=== PATIENT | female | born 2000 | race Caucasian/White ===

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

== ENCOUNTER 2022-01-04 06:00 | Inpatient (IN) | payer OTHER ==
[2022-01-04] MEDS ORDERED: CARBOPROST TROMETHAMINE 250 MCG/ML 1 ML AMP IM PRN (06:10)
[2022-01-04] MEDS ORDERED: OXYTOCIN 10 UNIT/ML 1 ML VIAL IM PRN (06:10)
[2022-01-04] MEDS ORDERED: TERBUTALINE 1 MG/ML VIAL SQ PRN (06:10)
[2022-01-04] MEDS ORDERED: LIDOCAINE 0.5% (PF) 5 MG/ML (50 ML SDV) SQ PRN (06:10)
[2022-01-04] MEDS ORDERED: METHYLERGONOVINE 0.2 MG/ML 1 ML AMP IM PRN (06:10)
[2022-01-04] MEDS ORDERED: AMPICILLIN 2,000 MG in SODIUM CHLORIDE 0.9% 100 ML IVPB STA (06:10)
[2022-01-04] MEDS: LACTATED RINGERS 1,000 ML IV SCH ×3 (06:13→15:11)
[2022-01-04] MEDS ORDERED: OXYTOCIN 30 UNITS/500 ML NS 30 UNIT in SALINE 1 500ML.BAG IV SCH (06:15)
[2022-01-04 06:37] LABS: Basophils # (A) 0.1 k/uL (0-0.2); Basophils % (A) 1 %; Eosinophils # (A) 0.3 k/uL (0-0.7); Eosinophils % (A) 2 %; HCT 36.3 % (34.0-46.0); Lymphocytes # (A) 2.5 k/uL (1.0-4.8); Lymphocytes % (A) 20 %; MCH 27.2 pg (25.0-35.0); MCHC 33.2 g/dL (31.0-37.0); Mean Platelet Volume 8.6; Monocytes # (A) 0.9 k/uL (0-1.0); Monocytes % (A) 7 %; Neutrophils # (A) 8.3 k/uL (1.3-7.7); Neutrophils % (A) 68 %; Platelet Count 269 k/uL (150-450); RBC 4.43 m/uL (3.80-5.40); RDW 12.9 % (11.5-15.5); WBC 12.2 k/uL (4.0-11.0)
[2022-01-04 08:00] LABS: Amorphous Sediment,Urine Few /hpf; Appearance,Urine Cloudy (Clear); Bilirubin,Urine Negative (Negative); Blood,Urine Negative (Negative); Color,Urine Light Yellow; Glucose,Urine (UA) Negative (Negative); Ketones,Urine Negative (Negative); Leukocyte Esterase,Urine Negative (Negative); Mucus,Urine Rare /hpf; Nitrite,Urine Negative (Negative); Protein,Urine Negative (Negative); Specific Gravity,Urine 1.014 (1.001-1.035); Squamous Epithelial Cell,Urine 1 /hpf (0-4); Urobilinogen,Urine <2.0 mg/dL (<2.0); WBC,Urine <1 /hpf (0-5)
[2022-01-04 10:36] LABS: Amphetamine Screen,Urine Not Detected (NotDetected); Barbiturate Screen,Urine Not Detected (NotDetected); Benzodiazepines Screen,Urine Not Detected (NotDetected); Cocaine Screen,Urine Not Detected (NotDetected); Methadone Screen, Urine Not Detected (NotDetected); Opiate Screen,Urine Not Detected (NotDetected); Oxycodone Screen, Urine Not Detected (NotDetected); Phencyclidine Screen,Urine Not Detected (NotDetected); Tricyclic Antidepressant,Urine Not Detected (NotDetected); Urn Cannabinoid Scrn Not Detected (NotDetected)
[2022-01-04] MEDS: AMPICILLIN 1,000 MG in SODIUM CHLORIDE 0.9% 50 ML IVPB SCH ×4 (10:53→23:22)
[2022-01-04] MEDS ORDERED: fentaNYL (PF) 50 MCG/ML 5 ML AMP ONE (14:11)
[2022-01-04] MEDS ORDERED: ROPIVACAINE 5 MG/ML 20 ML AMPULE ONE (14:11)
[2022-01-04] MEDS ORDERED: SODIUM CHLORIDE 0.9% 100 ML BAG ONE (14:11)
--- NOTE | 2022-01-04 22:08 | P.HPOB ---
History of Present Illness H&P Date: 01/04/22 Chief Complaint: Induction of labor 21 year old presents at 39 weeks 5 days for induction of labor. Her cervix is 1-2/70%/-2. She is melinda irregularly. heart tones 135 with moderate variability and reactive. Review of Systems All systems: negative Constitutional: Denies chills, Denies fever Eyes: denies blurred vision, denies pain Ears, nose, mouth and throat: Denies headache, Denies sore throat Cardiovascular: Denies chest pain, Denies shortness of breath Respiratory: Denies cough Gastrointestinal: Denies abdominal pain, Denies diarrhea, Denies nausea, Denies vomiting Genitourinary: Denies dysuria, Denies hematuria Musculoskeletal: Denies myalgias Integumentary: Denies pruritus, Denies rash Neurological: Denies numbness, Denies weakness Psychiatric: Denies anxiety, Denies depression Endocrine: Denies fatigue, Denies weight change Past Medical History Past Medical History: Asthma History of Any Multi-Drug Resistant Organisms: None Reported Past Surgical History: No Surgical Hx Reported Additional Past Surgical History / Comment(s): [place] teeth, D&C 2020 Past Anesthesia/Blood Transfusion Reactions: No Reported Reaction Past Psychological History: Anxiety, Bipolar, Depression Smoking Status: Vaper Past Alcohol Use History: None Reported Past Drug Use History: Marijuana - Past Family History Father Family Medical History: Thyroid Disorder Mother Family Medical History: Thyroid Disorder Medications and Allergies Home Medications Medication Instructions Recorded Confirmed Type Vit No.179/Iron/Folic 1 tablet PO DAILY 01/04/22 01/04/22 History [ Tablet] Allergies Allergy/AdvReac Type Severity Reaction Status Date / Time No Known Allergies Allergy Verified 01/04/22 06:09 Exam Osteopathic Statement: *. No significant issues noted on an osteopathic structural exam other than those noted in the History and Physical/Consult. Vital Signs Temp Pulse Resp BP Pulse Ox 01/04/22 06:34 97.4 F L 105 H 18 138/85 96 Intake and Output 01/04/22 01/04/22 01/04/22 06:59 14:59 22:59 Other: # Voids 5 Weight 122.016 kg Heart: Regular rate and rhythm Lungs: Clear to auscultation bilaterally Abdomen: Soft, nontender Extremities: Negative Homans sign Results Result Diagrams: 01/04/22 06:15 Abnormal Lab Results - Last 24 Hours (Table) 01/04/22 01/04/22 Range/Units 06:05 06:15 WBC 12.2 H (4.0-11.0) k/uL Neutrophils # 8.3 H (1.3-7.7) k/uL Urine Appearance Cloudy H (Clear) Amorphous Sediment Few H (None) /hpf Urine Mucus Rare H (None) /hpf Assessment and Plan (1) Encounter for induction of labor Current Visit: Yes Status: Acute Code(s): Z34.90 - ENCNTR FOR SUPRVSN OF NORMAL , UNSP, UNSP TRIMESTER SNOMED Code(s): 563951028 Plan: 1. induction of labor with amniotomy and pitocin 2. anticipate normal vaginal delivery
[2022-01-05] MEDS ORDERED: ACETAMINOPHEN TAB 325 MG TAB PO PRN (00:13)
[2022-01-05] MEDS ORDERED: HYDROCORTISONE 2.5% RECTAL CREAM 30 GM TUBE RECTAL PRN (00:13)
[2022-01-05] MEDS ORDERED: LANOLIN CREAM 5 GM TUBE TOPICAL PRN (00:13)
[2022-01-05] MEDS ORDERED: ZOLPIDEM 5 MG TAB PO PRN (00:13)
[2022-01-05] MEDS ORDERED: SIMETHICONE 80 MG CHEWABLE PO PRN (00:13)
[2022-01-05] MEDS ORDERED: diphenhydrAMINE 25 MG CAP PO PRN (00:13)
[2022-01-05] MEDS ORDERED: diphenhydrAMINE 50 MG CAP PO PRN (00:13)
[2022-01-05] MEDS ORDERED: BENZOCAINE/MENTHOL SPRAY 1 GM/SPRAY AEROSOL TOPICAL PRN (00:13)
[2022-01-05] MEDS ORDERED: diphenhydrAMINE 50 MG/ML 1 ML VIAL IVP PRN ×2 (00:13)
[2022-01-05] MEDS ORDERED: OXYTOCIN 30 UNITS/500 ML NS 30 UNIT in SALINE 1 500ML.BAG IV SCH (00:15)
[2022-01-05] MEDS: LACTATED RINGERS 1,000 ML IV SCH (00:27)
[2022-01-05] MEDS: IBUPROFEN 600 MG TAB PO PRN ×2 (01:15→08:11)
[2022-01-05] MEDS: SENNOSIDES-DOCUSATE SODIUM 1 EACH TAB PO SCH (08:10)
--- NOTE | 2022-01-05 08:10 | P.PROBDLV ---
Vaginal Delivery Note - . Vaginal Delivery Note: 21 year old presents at 39 weeks 5 days for induction of labor. Her cervix is 1-2/70%/-2. She is melinda irregularly. heart tones 135 with moderate variability and reactive. Pitocin was started and amniotomy performed at 7:24 AM, clear fluid noted. She progressed slowly throughout the day and started with some nitrous for pain control. By the afternoon she was quite uncomfortable and required an epidural and she was 3 cm at that time. Her cervix was completely dilated at 2346. She pushed, and delivered a viable female over intact perineum under epidural anesthesia at 2358. Head delivered OA, anterior shoulder delivered gentle downward guidance followed by posterior shoulder and rest of body. Nose and mouth bulb suctioned, cord clamped and cut, placed mother's abdomen. Apgars 9, 9, weight 7 lbs. 7 oz. Placenta delivered spontaneously, intact with three-vessel cord at midnight. Vagina, cervix, perineum inspected. Bilateral labial first-degree tears were repaired with 3-0 Vicryl. Estimated blood loss 200 mL. Mother and baby in stable condition.
--- NOTE | 2022-01-05 08:12 | P.PNOBGVD ---
Subjective - Subjective Principal diagnosis: Status post normal vaginal delivery day #1 Interval history: Patient seen and examined. Denies nausea, vomiting, chest pain, shortness of breath or any calf pain. Patient reports: Reports appetite normal, Reports voiding normally, Reports pain well controlled, Reports ambulating normally [place]: doing well Objective - Latest Vital Signs Latest vital signs: Vital Signs Temp Pulse Resp BP Pulse Ox 01/05/22 04:00 98.4 F 100 18 112/67 96 01/05/22 02:12 97.6 F 120 H 16 128/59 01/05/22 01:42 99.4 F 122 H 16 118/56 01/05/22 01:12 99.7 F H 122 H 16 132/57 01/05/22 00:57 98.8 F 122 H 16 128/56 01/05/22 00:42 125 H 16 120/59 01/05/22 00:27 96.9 F L 133 H 16 118/56 01/05/22 00:12 130 H 18 132/74 Intake and Output 01/04/22 01/05/22 01/05/22 22:59 06:59 14:59 Intake Total 34.5 Output Total 375 305 Balance -375 -270.5 Intake: Intake, IV Titration 34.5 Amount Oxytocin 30 Units/500 ml 34.5 Ns 30 unit In Saline 1 500ml.bag @ Per Protocol IV .Q0M [facility] Rx#:[id number] Output: Urine 375 Estimated Blood Loss 200 Output, Quantitative 105 Blood Loss Other: # Voids 1 - Exam Lungs: bilateral: normal Chest: Normal S1, Normal S2 Extremities: Present: normal Abdomen: Present: normal appearance, soft Uterus: Present: normal, firm Assessment and Plan (1) Encounter for induction of labor Current Visit: Yes Status: Resolved Code(s): Z34.90 - ENCNTR FOR SUPRVSN OF NORMAL , UNSP, UNSP TRIMESTER SNOMED Code(s): 983033804 (2) Status post normal vaginal delivery Current Visit: Yes Status: Acute Code(s): [id number] - SNOMED Code(s): 731278561 Plan: 1. Continue care
[2022-01-06] MEDS: IBUPROFEN 600 MG TAB PO PRN (07:34)
[2022-01-06 07:44] VITALS: BP 115/72; PULSE 75; RESP 16; TEMP 98.2
[2022-01-06] MEDS: SENNOSIDES-DOCUSATE SODIUM 1 EACH TAB PO SCH ×2 (07:44→09:14)
--- NOTE | 2022-01-06 08:30 | P.DS ---
Providers Date of admission: 01/04/22 06:00 Expected date of discharge: 01/06/22 Attending physician: Christina Holloway Primary care physician: Stated None - Discharge Diagnosis(es) (1) Encounter for induction of labor Current Visit: Yes Status: Resolved (2) Status post normal vaginal delivery Current Visit: Yes Status: Acute Hospital Course: Pt presented for induction of labor. She underwent a normal vaginal delivery. course was uncomplicated. She denies nausea, I'm, chest pain, shortness of breath or calf pain. Patient will be discharged home day #1 in stable condition to follow-up with me in 6 weeks. Plan - Discharge Summary New Discharge Prescriptions: New Ibuprofen [Motrin] 600 mg PO Q6HR PRN #30 tab PRN Reason: Mild Pain (Scale 1 To 3) No Action Vit No.179/Iron/Folic [ Tablet] 1 tablet PO DAILY Discharge Medication List Vit No.179/Iron/Folic [ Tablet] 1 tablet PO DAILY 01/04/22 [History] Ibuprofen [Motrin] 600 mg PO Q6HR PRN #30 tab 01/06/22 [Rx] Follow up Appointment(s)/Referral(s): Christina Holloway DO [Doctor of Osteopathic Medicine] - 02/17/22 11:15 am Discharge Disposition: HOME SELF-CARE
== END 2022-01-06 11:15 | disposition home or self-care (01) | DRG 807 ==
LOC: 4FBP 06:00
PROVIDERS: ADMIT Obstetrics & Gynecology; ATTEND Obstetrics & Gynecology
PROC: 10E0XZZ Delivery of Products of Conception, External Approach (ICD-10-PCS; principal; 2022-01-05)
PROC: 4A0HXCZ Measurement of Products of Conception, Cardiac Rate, External Approach (ICD-10-PCS; 2022-01-05)
PROC: 10907ZC Drainage of Amniotic Fluid, Therapeutic from Products of Conception, Via Natural or Artificial Opening (ICD-10-PCS; 2022-01-05)
PROC: 3E033VJ Introduction of Other Hormone into Peripheral Vein, Percutaneous Approach (ICD-10-PCS; 2022-01-05)
PROC: 0HQ9XZZ Repair Perineum Skin, External Approach (ICD-10-PCS; 2022-01-05)
DX: O99.334 Smoking (tobacco) complicating childbirth (principal); O70.0 First degree perineal laceration during delivery; Z37.0 Single live birth; F31.9 Bipolar disorder, unspecified; F41.9 Anxiety disorder, unspecified; J45.909 Unspecified asthma, uncomplicated; O99.344 Other mental disorders complicating childbirth; F17.290 Nicotine dependence, other tobacco product, uncomplicated; Z3A.39 39 weeks gestation of pregnancy; O99.52 Diseases of the respiratory system complicating childbirth
CPT/HCPCS: 80306; 81001; 85025; 86850; 86900; 86901

== ENCOUNTER 2022-06-30 09:03 | Emergency (ER) | payer OTHER ==
[2022-06-30 09:08] VITALS: TEMP 97.8
[2022-06-30 09:51] VITALS: BP 120/78; PULSE 80; RESP 16
--- NOTE | 2022-06-30 10:24 | ED ---
Fall HPI - General Chief Complaint: Fall Stated Complaint: Fall,17wks Time Seen by Provider: 06/30/22 09:10 Source: patient, RN notes reviewed Mode of arrival: ambulatory Limitations: no limitations - History of Present Illness Initial Comments: This is a 22-year-old female presents emergency Department with chief complaint of fall. Patient states she is coming on someone status and which was slippery. Patient states that she slipped falling onto her back. Patient states she is 17 weeks states that she is concerned about the baby she did not check her abdomen denies any vaginal bleeding or vaginal discharge. Patient states she hasn't mild back pain denies any lower extremity weakness, paresthesias denies any bowel, bladder incontinence or retention no head injury no loss conscious. - Related Data Home Medications Medication Instructions Recorded Confirmed Vit No.179/Iron/Folic 1 tablet PO W/SUPPER 01/04/22 06/30/22 [ Tablet] Allergies Allergy/AdvReac Type Severity Reaction Status Date / Time No Known Allergies Allergy Verified 06/30/22 09:38 Review of Systems ROS Statement: Those systems with pertinent positive or pertinent negative responses have been documented in the HPI. ROS Other: All systems not noted in ROS Statement are negative. Past Medical History Past Medical History: Asthma History of Any Multi-Drug Resistant Organisms: None Reported Past Surgical History: No Surgical Hx Reported Additional Past Surgical History / Comment(s): [place] teeth, D&C 2020 Past Anesthesia/Blood Transfusion Reactions: No Reported Reaction Past Psychological History: Anxiety, Bipolar, Depression Smoking Status: Vaper Past Alcohol Use History: None Reported Past Drug Use History: Marijuana - Past Family History Father Family Medical History: Thyroid Disorder Mother Family Medical History: Thyroid Disorder General Exam Limitations: no limitations General appearance: alert, in no apparent distress Head exam: Present: atraumatic, normocephalic, normal inspection Eye exam: Present: normal appearance, PERRL, EOMI. Absent: scleral icterus, conjunctival injection, periorbital swelling ENT exam: Present: normal exam, mucous membranes moist Neck exam: Present: normal inspection, full ROM. Absent: tenderness, meningismus, lymphadenopathy Respiratory exam: Present: normal lung sounds bilaterally. Absent: respiratory distress, wheezes, rales, rhonchi, stridor Cardiovascular Exam: Present: regular rate, normal rhythm, normal heart sounds. Absent: systolic murmur, diastolic murmur, rubs, gallop, clicks GI/Abdominal exam: Present: soft, normal bowel sounds. Absent: distended, tende rness, guarding, rebound, rigid Extremities exam: Present: normal inspection, full ROM, normal capillary refill. Absent: tenderness, pedal edema, joint swelling, calf tenderness Back exam: Present: full ROM, tenderness (Mild thoracic tenderness), paraspinal tenderness. Absent: vertebral tenderness Neurological exam: Present: alert, reflexes normal. Absent: motor sensory deficit Course Vital Signs 06/30/22 06/30/22 09:04 09:07 Temperature 97.8 F Pulse Rate 69 80 Respiratory 18 16 Rate Blood Pressure 120/64 120/78 O2 Sat by Pulse 95 98 Oximetry Medical Decision Making - Medical Decision Making Was pt. sent in by a medical professional or institution (, [facility], UPTWIST SPINNER, urgent care, hospital, or care home...) When possible be specific @ -No Did you speak to anyone other than the patient for history (EMS, parent, family, police, friend...)? What history was obtained from this source @ -No Did you review nursing and triage notes (agree or disagree)? Why? @ -I reviewed and agree with nursing and triage notes Were old charts reviewed (outside hosp., previous admission, EMS record, old EKG, old radiological studies, urgent care reports/EKG's, care home records)? Report findings @ -No old charts were reviewed Differential Diagnosis (chest pain, altered mental status, abdominal pain women, abdominal pain men, vaginal bleeding, weakness, fever, dyspnea, syncope, headache, dizziness, GI bleed, back pain, seizure, CVA, palpatations, mental health, musculoskeletal)? @ -Fall, back pain, back contusion, , condition, this list is not all inclusive. EKG interpreted by me (3pts min.). @ -None X-rays interpreted by me (1pt min.). @ -None done CT interpreted by me (1pt min.). @ -None done U/S interpreted by me (1pt. min.). @ -Ultrasound shows normal IUP no acute complicating process What testing was considered but not performed or refused? (CT, X-rays, U/S, labs)? Why? @ -Considered x-ray of her thoracic spine, lumbar spine patient decline as she is currently and that she would monitor symptoms. What meds were considered but not given or refused? Why? @ -None Did you discuss the management of the patient with other professionals (micheline dye i.e. , PA, UPTWIST SPINNER, lab, RT, psych nurse, social sciences lecturer, military lawyer, teacher, youth corrections officer, case filler)? Give summary @ -No Was smoking cessation discussed for >3mins.? @ -No Was critical care preformed (if so, how long)? @ -No Were there social determinants of health that impacted care today? How? (Homelessness, low income, unemployed, alcoholism, drug addiction, transportation, low edu. Level, literacy, decrease access to med. care, assisted, rehab)? @ -No Was there de-escalation of care discussed even if they declined (Discuss DNR or withdrawal of care, Hospice)? DNR status @ -No What co-morbidities impacted this encounter? (DM, HTN, Smoking, COPD, CAD, Cancer, CVA, ARF, Chemo, Hep., AIDS, mental health diagnosis, sleep apnea, morbid obesity)? @ -None Was patient admitted / discharged? Hospital course, mention meds given and route, prescriptions, significant lab abnormalities, going to OR and other pertinent info. @ -Discharge patient has back contusion will have close monitoring was offered x-rays patient decline. Patient ultrasound is unremarkable patient will follow- up with INTERIOR DESIGN INSTRUCTOR return parameters discussed. Undiagnosed new problem with uncertain prognosis? @ -No Drug Therapy requiring intensive monitoring for toxicity (Heparin, Nitro, Insulin, Cardizem)? @ -No Were any procedures done? @ -No Diagnosis/symptom? @ -Fall, back pain, Acute, or Chronic, or Acute on Chronic? @ -Acute Uncomplicated (without systemic symptoms) or Complicated (systemic symptoms)? @ -Uncomplicated Side effects of treatment? @ -No Exacerbation, Progression, or Severe Exacerbation? @ -No Poses a threat to life or bodily function? How? (Chest pain, [place], [place], pneumonia, PE, COPD, DKA, ARF, appy, cholecystitis, CVA, Diverticulitis, Homicidal, Suicidal, threat to staff... and all critical care pts) @ -No Disposition Clinical Impression: Fall, Back pain, Disposition: HOME SELF-CARE Condition: Stable Instructions (If sedation given, give patient instructions): Back Pain (ED) Additional Instructions: Please return to the Emergency Department if symptoms worsen or any other concerns. Is patient prescribed a controlled substance at d/c from ED?: No Referrals: None,Stated [Primary Care Provider] - 1-2 days Time of Disposition: 10:53
--- NOTE | 2022-06-30 10:50 | US ---
EXAMINATION TYPE: US OB >= 14 wk fetus DATE OF EXAM: 06/30/2022 COMPARISON: None CLINICAL HISTORY: 22-year-old female pain, fall today TECHNIQUE: OBTA GESTATIONAL AGE / DATING Physician Established: (16 weeks/6 days) EDC: 12/09/2022 Dates by LMP: LMP unknown Dates by First Scan: No previous Dates by Current Scan: (16 weeks/4 days) FINDINGS: EDC: 12/11/2022 SURVEY IUP: Single PLACENTA: Posterior. No discrete placental abnormality identified. PREVIA: No Previa DANNY: 11.7 cm Normal CERVICAL LENGTH (transabdominal: norm > 3.0cm): 4.2cm BIOMETRY PRESENTATION: Variable BPD: 3.3 cm 16 weeks / 2 days HC: 12.6 cm 16 weeks / 3 days AC: 10.7 cm 16 weeks / 4 days FL: 2.2 cm 16 weeks / 3 days ESTIMATED WEIGHT IN GRAMS: 159 grams ESTIMATED WEIGHT IN LBS/OZ: 0 lbs. 6 oz. WEIGHT PERCENTAGE BASED ON ESTABLISHED DATES: 23.9% HC/AC: 1.2 Normal FL/AC: 20.1 Normal HEART RATE: 162 bpm RHYTHM: Normal IMPRESSION: 1. Single live intrauterine with established gestational age of 16 weeks 6 days. Current ul trasound biometry is concordant at 16 weeks 4 days. EFW at the 24th percentile. 2. Complete survey recommended at 18-20 weeks.
== END 2022-06-30 11:27 | disposition home or self-care (01) ==
LOC: EC 09:03
DX: O9A.212 Injury, poisoning and certain other consequences of external causes complicating pregnancy, second trimester (principal); M54.9 Dorsalgia, unspecified; O99.512 Diseases of the respiratory system complicating pregnancy, second trimester; J45.909 Unspecified asthma, uncomplicated; O99.342 Other mental disorders complicating pregnancy, second trimester; F41.9 Anxiety disorder, unspecified; F31.9 Bipolar disorder, unspecified; O99.332 Smoking (tobacco) complicating pregnancy, second trimester; F17.290 Nicotine dependence, other tobacco product, uncomplicated; F12.90 Cannabis use, unspecified, uncomplicated; W01.0XXA Fall on same level from slipping, tripping and stumbling without subsequent striking against object, initial encounter; Z3A.17 17 weeks gestation of pregnancy
CPT/HCPCS: 76805; 99284

== ENCOUNTER 2022-07-08 09:02 | Emergency (ER) | payer OTHER ==
[2022-07-08 09:20] VITALS: RESP 16; TEMP 98.1
--- NOTE | 2022-07-08 10:08 | XR ---
EXAMINATION TYPE: XR thoracic spine 2V DATE OF EXAM: 07/08/2022 CLINICAL HISTORY: pain TECHNIQUE: Frontal, lateral, and swimmer's view of thoracic spine are obtained. COMPARISON: None. FINDINGS: There is curvature convex to the right. Mild spur formation is seen scattered throughout. T horacic spine show satisfactory alignment without evidence of acute fracture or dislocation. Vertebr al body heights are preserved. Disc spaces are well preserved. Visualized ribs are unremarkable. IMPRESSION: No acute fracture or dislocation is seen in the thoracic spine. ICD 10 NO FRACTURE, INIT IAL EVALUATION
--- NOTE | 2022-07-08 10:13 | ED ---
Back Pain HPI - General Chief Complaint: Back Pain/Injury Stated Complaint: revisit- 18wks preg, fall, back pain Time Seen by Provider: 07/08/22 09:34 Source: patient, RN notes reviewed Mode of arrival: ambulatory Limitations: no limitations - History of Present Illness Initial Comments: 22-year-old female presents emergency Department chief complaint of back pain. Patient was seen here recently after a fall. Patient was offered x-rays of her back which she declined at this time given that she was . Patient states pain persists and she is back today for x-rays. She denies any vaginal bleeding or vaginal discharge states that she has no significant abdominal cramping with her . No other associated symptoms denies any bowel, b ladder incontinence or retention. She states she has mid to upper and lower back pain. Patient has not taken any Tylenol. - Related Data Home Medications Medication Instructions Recorded Confirmed Vit No.179/Iron/Folic 1 tablet PO W/SUPPER 01/04/22 06/30/22 [ Tablet] Allergies Allergy/AdvReac Type Severity Reaction Status Date / Time No Known Allergies Allergy Verified 07/08/22 09:20 Review of Systems ROS Statement: Those systems with pertinent positive or pertinent negative responses have been documented in the HPI. ROS Other: All systems not noted in ROS Statement are negative. Past Medical History Past Medical History: Asthma History of Any Multi-Drug Resistant Organisms: None Reported Past Surgical History: No Surgical Hx Reported Additional Past Surgical History / Comment(s): [place] teeth, D&C 2020 Past Anesthesia/Blood Transfusion Reactions: No Reported Reaction Past Psychological History: Anxiety, Bipolar, Depression Smoking Status: Vaper Past Alcohol Use History: None Reported Past Drug Use History: Marijuana - Past Family History Father Family Medical History: Thyroid Disorder Mother Family Medical History: Thyroid Disorder General Exam General appearance: alert, in no apparent distress Head exam: Present: atraumatic, normocephalic, normal inspection Eye exam: Present: normal appearance, PERRL, EOMI. Absent: scleral icterus, conjunctival injection, periorbital swelling Neck exam: Present: normal inspection. Absent: tenderness, meningismus, lymphadenopathy Respiratory exam: Present: normal lung sounds bilaterally. Absent: respiratory distress, wheezes, rales, rhonchi, stridor Cardiovascular Exam: Present: regular rate, normal rhythm, normal heart sounds. Absent: systolic murmur, diastolic murmur, rubs, gallop, clicks GI/Abdominal exam: Present: soft, normal bowel sounds. Absent: distended, tenderness, guarding, rebound, rigid Extremities exam: Present: normal inspection, full ROM, normal capillary refill. Absent: tenderness, pedal edema, joint swelling, calf tenderness Back exam: Present: normal inspection, full ROM, tenderness, paraspinal tenderness, vertebral tenderness (Mid to lower thoracic) Neurological exam: Present: alert, oriented X3, CN II-XII intact, reflexes normal. Absent: motor sensory deficit Skin exam: Present: warm, dry, intact, normal color. Absent: rash Course Vital Signs 07/08/22 09:18 Temperature 98.1 F Pulse Rate 77 Respiratory 16 Rate Blood Pressure 121/78 O2 Sat by Pulse 100 Oximetry Medical Decision Making - Medical Decision Making Was pt. sent in by a medical professional or institution (, PA, CAVING GUIDE, urgent care, hospital, or custodial...) When possible be specific @ -No Did you speak to anyone other than the patient for history (EMS, parent, family, police, friend...)? What history was obtained from this source @ -No Did you review nursing and triage notes (agree or disagree)? Why? @ -I reviewed and agree with nursing and triage notes Were old charts reviewed (outside hosp., previous admission, EMS record, old EKG, old radiological studies, urgent care reports/EKG's, custodial records)? Report findings @ -Review prior charts including labs, imaging Differential Diagnosis (chest pain, altered mental status, abdominal pain women, abdominal pain men, vaginal bleeding, weakness, fever, dyspnea, syncope, headache, dizziness, GI bleed, back pain, seizure, CVA, palpatations, mental health, musculoskeletal)? @ -Differential Back Pain: Strain, zoster, cauda equina syndrome, epidural abscess, vertebral osteomyelitis, discitis, fracture, subluxation, disc herniation, DJD, spinal stenosis, dissection, AAA, pancreatitis, peptic ulcer disease, pyelonephritis, kidney stone, this is not meant to be an all-inclusive list. EKG interpreted by me (3pts min.). @ -None X-rays interpreted by me (1pt min.). @ -X-ray thoracic shows evidence of no acute fracture. CT interpreted by me (1pt min.). @ -None done U/S interpreted by me (1pt. min.). @ -None done What testing was considered but not performed or refused? (CT, X-rays, U/S, labs)? Why? @ -None What meds were considered but not given or refused? Why? @ -None Did you discuss the management of the patient with other professionals (professionals i.e. DrJayy, PA, CAVING GUIDE, lab, RT, psych nurse, dialysis social worker, tetryl boiling tub operator, teacher, search and rescue officer, rehabilitation caseworker)? Give summary @ -No Was smoking cessation discussed for >3mins.? @ -No Was critical care preformed (if so, how long)? @ -No Were there social determinants of health that impacted care today? How? (Homelessness, low income, unemployed, alcoholism, drug addiction, transportation, low edu. Level, literacy, decrease access to med. care, correction, rehab)? @ -No Was there de-escalation of care discussed even if they declined (Discuss DNR or withdrawal of care, Hospice)? DNR status @ -No What co-morbidities impacted this encounter? (DM, HTN, Smoking, COPD, CAD, Cancer, CVA, ARF, Chemo, Hep., AIDS, mental health diagnosis, sleep apnea, morbid obesity)? @ -None Was patient admitted / discharged? Hospital course, mention meds given and route, prescriptions, significant lab abnormalities, going to OR and other pertinent info. @ -Discharge patient x-rays negative for acute fracture. Patient denies contusion from a fall. Patient will continue take Tylenol as directed and return for any worsening symptoms. Undiagnosed new problem with uncertain prognosis? @ -No Drug Therapy requiring intensive monitoring for toxicity (Heparin, Nitro, Insulin, Cardizem)? @ -No Were any procedures done? @ -No Diagnosis/symptom? @ -Fall, back pain Acute, or Chronic, or Acute on Chronic? @ -Acute Uncomplicated (without systemic symptoms) or Complicated (systemic symptoms)? @ -Uncomplicated Side effects of treatment? @ -No Exacerbation, Progression, or Severe Exacerbation? @ -No Poses a threat to life or bodily function? How? (Chest pain, [place], [place], pneumonia, PE, COPD, DKA, ARF, appy, cholecystitis, CVA, Diverticulitis, Homicidal, Suicidal, threat to staff... and all critical care pts) @ -No Disposition Clinical Impression: Fall, Back pain Disposition: HOME SELF-CARE Condition: Stable Instructions (If sedation given, give patient instructions): Back Pain (ED) Additional Instructions: Please return to the Emergency Department if symptoms worsen or any other concerns. Is patient prescribed a controlled substance at d/c from ED?: No Referrals: None,Stated [Primary Care Provider] - 1-2 days Time of Disposition: 10:13
[2022-07-08 10:55] VITALS: BP 132/78; PULSE 80
== END 2022-07-08 10:55 | disposition home or self-care (01) ==
LOC: EC 09:02
DX: O9A.212 Injury, poisoning and certain other consequences of external causes complicating pregnancy, second trimester (principal); M54.50 Low back pain, unspecified; O99.512 Diseases of the respiratory system complicating pregnancy, second trimester; J45.909 Unspecified asthma, uncomplicated; O99.352 Diseases of the nervous system complicating pregnancy, second trimester; F41.9 Anxiety disorder, unspecified; F31.9 Bipolar disorder, unspecified; O99.332 Smoking (tobacco) complicating pregnancy, second trimester; F17.290 Nicotine dependence, other tobacco product, uncomplicated; O99.322 Drug use complicating pregnancy, second trimester; F12.90 Cannabis use, unspecified, uncomplicated; Z3A.18 18 weeks gestation of pregnancy; W19.XXXA Unspecified fall, initial encounter
CPT/HCPCS: 72070; 99283

== ENCOUNTER 2022-08-22 17:46 | Emergency (ER) | payer OTHER ==
--- NOTE | 2022-08-22 17:48 | ED ---
General Adult HPI <Elba Guerrero - Last Filed: 08/22/22 17:47> <Laurence Gomez - Last Filed: 08/22/22 23:53> - General Stated complaint: Ear Pain Both Time Seen by Provider: 08/22/22 17:47 - History of Present Illness Initial comments: 22-year-old female with no significant past medical history presents the emergency department with a chief complaint of bilateral ear pain. Denies fevers (Elba Guerrero) Patient is a 22-year-old female presenting with chief complaint of bilateral ear pain. She is currently 24 weeks with no abdominal pain or vaginal bleeding. She admits to recent nasal congestion and sinus pressure. No cough, sore throat, chest pain, difficulty breathing, fever, chills, nausea, vomiting, diarrhea, dysuria. (Laurence Gomez) - Related Data Home Medications Medication Instructions Recorded Confirmed Vit No.179/Iron/Folic 1 tablet PO W/SUPPER 01/04/22 06/30/22 [ Tablet] Previous Rx's Medication Instructions Recorded Amoxicillin 875 mg PO Q12HR 7 Days #14 tablet 08/22/22 Allergies Allergy/AdvReac Type Severity Reaction Status Date / Time No Known Allergies Allergy Verified 08/22/22 17:56 Review of Systems ROS Other: All systems not noted in ROS Statement are negative. <Elba Guerrero - Last Filed: 08/22/22 17:47> ROS Other: All systems not noted in ROS Statement are negative. <Laurence Gomez - Last Filed: 08/22/22 23:53> ROS Statement: Those systems with pertinent positive or pertinent negative responses have been documented in the HPI. Past Medical History Past Medical History: Asthma History of Any Multi-Drug Resistant Organisms: None Reported Past Surgical History: No Surgical Hx Reported Additional Past Surgical History / Comment(s): [place] teeth, D&C 2020 Past Anesthesia/Blood Transfusion Reactions: No Reported Reaction Past Psychological History: Anxiety, Bipolar, Depression Smoking Status: Vaper Past Alcohol Use History: None Reported Past Drug Use History: Marijuana - Past Family History Father Family Medical History: Thyroid Disorder Mother Family Medical History: Thyroid Disorder <Elba Guerrero - Last Filed: 08/22/22 17:47> General Exam <Elba Guerrreo - Last Filed: 08/22/22 17:47> Limitations: no limitations General appearance: alert, in no apparent distress Head exam: Present: atraumatic, normocephalic, normal inspection Eye exam: Present: normal appearance, EOMI. Absent: scleral icterus, periorbital swelling ENT exam: Present: normal exam, normal oropharynx, mucous membranes moist Expanded Ear exam: Present: normal external inspection TM/Canal exam: Erythema: Right TM, Left TM Neck exam: Present: normal inspection, full ROM Respiratory exam: Present: normal lung sounds bilaterally. Absent: respiratory distress, wheezes, rales, rhonchi, stridor Cardiovascular Exam: Present: regular rate, normal rhythm, normal heart sounds. Absent: systolic murmur, diastolic murmur, rubs, gallop, clicks Neurological exam: Present: alert, oriented X3, CN II-XII intact Psychiatric exam: Present: normal affect, normal mood Skin exam: Present: warm, dry, intact, normal color. Absent: rash <Laurence Gomez - Last Filed: 08/22/22 23:53> - General Exam Comments Initial Comments: Visual Physical Exam Vital signs reviewed General: Well-appearing, nontoxic, no acute distress. Head: Normocephalic, atraumatic Eyes: PERRLA, EOMI ENT: Airway patent Chest: Nonlabored breathing Skin: No visual rash, normal skin tone Neuro: Alert and oriented 3 Musculoskeletal: No gross abnormalities (Elba Guerrero) Course Vital Signs 08/22/22 08/22/22 17:52 20:25 Temperature 98.8 F 98.2 F Pulse Rate 96 69 Respiratory 20 18 Rate Blood Pressure 116/72 106/68 O2 Sat by Pulse 97 99 Oximetry Medical Decision Making <Laurence Gomez - Last Filed: 08/22/22 23:53> - Medical Decision Making Was pt. sent in by a medical professional or institution (, PA, COMPUTER AIDED DESIGN TECHNICIAN, urgent care, hospital, or residential...) When possible be specific @ -No Did you speak to anyone other than the patient for history (EMS, parent, family, police, friend...)? What history was obtained from this source @ -No Did you review nursing and triage notes (agree or disagree)? Why? @ -I reviewed and agree with nursing and triage notes Were old charts reviewed (outside hosp., previous admission, EMS record, old EKG, old radiological studies, urgent care reports/EKG's, residential records)? Report findings @ -No old charts were reviewed Differential Diagnosis (chest pain, altered mental status, abdominal pain women, abdominal pain men, vaginal bleeding, weakness, fever, dyspnea, syncope, headache, dizziness, GI bleed, back pain, seizure, CVA, palpatations, mental health, musculoskeletal)? @ -Differential includes URI, otitis media, otitis externa, sinusitis, this is not an all inclusive list EKG interpreted by me (3pts min.). @ -As above X-rays interpreted by me (1pt min.). @ -None done CT interpreted by me (1pt min.). @ -None done U/S interpreted by me (1pt. min.). @ -None done What testing was considered but not performed or refused? (CT, X-rays, U/S, labs)? Why? @ -None What meds were considered but not given or refused? Why? @ -None Did you discuss the management of the patient with other professionals (professionals i.e. , PA, COMPUTER AIDED DESIGN TECHNICIAN, lab, RT, psych nurse, social media manager, cashier general, teacher, dog license officer supervisor, watch caser)? Give summary @ -No Was smoking cessation discussed for >3mins.? @ -No Was critical care preformed (if so, how long)? @ -No Were there social determinants of health that impacted care today? How? (Homelessness, low income, unemployed, alcoholism, drug addiction, transportation, low edu. Level, literacy, decrease access to med. care, long-term, rehab)? @ -No Was there de-escalation of care discussed even if they declined (Discuss DNR or withdrawal of care, Hospice)? DNR status @ -No What co-morbidities impacted this encounter? (DM, HTN, Smoking, COPD, CAD, Cancer, CVA, ARF, Chemo, Hep., AIDS, mental health diagnosis, sleep apnea, morbid obesity)? @ -None Was patient admitted / discharged? Hospital course, mention meds given and route, prescriptions, significant lab abnormalities, going to OR and other pertinent info. @ -Patient is a 22-year-old female currently 24 weeks presenting with chief complaint of bilateral ear pain as well as sinus congestion and pressure. Symptoms ongoing for a few days. No abdominal pain or vaginal bleeding. Physical examination heart and lungs are clear to auscultation, bilateral tympanic membranes are erythematous. Patient is negative for influenza, RSV, Covid. She'll be treated for otitis media with amoxicillin. Educated on supportive treatment at home. Follow-up with PCP. Report back to ER with any new or worsening symptoms. Discussed return parameters and answered all questions. Patient conveyed verbal understanding and agreed to the plan. I discussed this case in detail with my attending Dr. Armas Undiagnosed new problem with uncertain prognosis? @ -No Drug Therapy requiring intensive monitoring for toxicity (Heparin, Nitro, Insulin, Cardizem)? @ -No Were any procedures done? @ -No Diagnosis/symptom? @ -Otitis media Acute, or Chronic, or Acute on Chronic? @ -Acute Uncomplicated (without systemic symptoms) or Complicated (systemic symptoms)? @ -Uncomplicated Side effects of treatment? @ -No Exacerbation, Progression, or Severe Exacerbation? @ -No Poses a threat to life or bodily function? How? (Chest pain, USA, [place], pneumonia, PE, COPD, DKA, ARF, appy, cholecystitis, CVA, Diverticulitis, Homicidal, Suicidal, threat to staff... and all critical care pts) @ -No (Laurence Gomez) - Lab Data Lab Results 08/22/22 Range/Units 18:39 Influenza Type A (PCR) Not Detected (Not Detectd) Influenza Type B (PCR) Not Detected (Not Detectd) RSV (PCR) Not Detected (Not Detectd) SARS-CoV-2 (PCR) Not Detected (Not Detectd) Disposition <Elba Guerrero - Last Filed: 08/22/22 17:47> Is patient prescribed a controlled substance at d/c from ED?: No Time of Disposition: 19:53 <Laurence Gomez - Last Filed: 08/22/22 23:53> Clinical Impression: Otitis media Disposition: HOME SELF-CARE Condition: Good Instructions (If sedation given, give patient instructions): Ear Infection (ED) Additional Instructions: Follow-up with PCP. Report back to ER with any new or worsening symptoms. Take medication as prescribed. Take Tylenol as needed for pain control. Prescriptions: Amoxicillin 875 mg PO Q12HR 7 Days #14 tablet Referrals: None,Stated [Primary Care Provider] - 1-2 days
[2022-08-22 20:27] VITALS: BP 106/68; PULSE 69; RESP 18; TEMP 98.2
== END 2022-08-22 20:26 | disposition home or self-care (01) ==
LOC: EC 17:46
DX: O99.352 Diseases of the nervous system complicating pregnancy, second trimester (principal); H66.93 Otitis media, unspecified, bilateral; O99.511 Diseases of the respiratory system complicating pregnancy, first trimester; J45.909 Unspecified asthma, uncomplicated; O99.332 Smoking (tobacco) complicating pregnancy, second trimester; F17.290 Nicotine dependence, other tobacco product, uncomplicated; O99.322 Drug use complicating pregnancy, second trimester; F12.90 Cannabis use, unspecified, uncomplicated; Z20.822 Contact with and (suspected) exposure to COVID-19; Z3A.24 24 weeks gestation of pregnancy
CPT/HCPCS: 87636; 99283

== ENCOUNTER 2022-09-27 15:42 | Emergency (ER) | payer OTHER ==
[2022-09-27 15:53] VITALS: RESP 18
[2022-09-27] MEDS ORDERED: SODIUM CHLORIDE 0.9% 500 ML 500 ML IV STA (16:21)
--- NOTE | 2022-09-27 16:23 | ED ---
General Adult HPI - General Chief complaint: Syncope Stated complaint: Syncope Time Seen by Provider: 09/27/22 15:44 Source: EMS Mode of arrival: EMS - History of Present Illness Initial comments: This patient is a 22-year-old woman presenting after syncopal episode. The patient states that she had been sitting on a bench talking when she suddenly felt lightheaded. She states she remembers waking up on the ground. She was told that she had passed out. Bystander does not report any seizure-like activity. No postictal period occurred. The patient does not feel as if she has any injury resulting from the fall from bench to the ground. No chest pain, abdominal pain -: minutes(s) Severity scale (1-10): 0 Consistency: constant Improves with: none Worsens with: none Associated Symptoms: denies other symptoms, syncope Treatments Prior to Arrival: none - Related Data Home Medications Medication Instructions Recorded Confirmed Albuterol Inhaler [Ventolin Hfa 2 puff INHALATION RT-QID PRN 09/27/22 09/27/22 Inhaler] Vit No.180/Iron/Folic 1 tab PO DAILY 09/27/22 09/27/22 [ Plus Tablet] Allergies Allergy/AdvReac Type Severity Reaction Status Date / Time No Known Allergies Allergy Verified 09/27/22 16:52 Review of Systems ROS Statement: Those systems with pertinent positive or pertinent negative responses have been documented in the HPI. ROS Other: All systems not noted in ROS Statement are negative. Constitutional: Denies: fever, chills Respiratory: Denies: cough, dyspnea Cardiovascular: Reports: syncope. Denies: chest pain, palpitations, edema Gastrointestinal: Denies: abdominal pain, vomiting, diarrhea Genitourinary: Denies: dysuria, hematuria, abnormal menses Musculoskeletal: Denies: back pain Skin: Denies: rash Neurological: Denies: headache, weakness Past Medical History Past Medical History: Asthma History of Any Multi-Drug Resistant Organisms: None Reported Past Surgical History: No Surgical Hx Reported Additional Past Surgical History / Comment(s): [place] teeth, D&C 2020 Past Anesthesia/Blood Transfusion Reactions: No Reported Reaction Past Psychological History: Anxiety, Bipolar, Depression Smoking Status: Vaper Past Alcohol Use History: None Reported Past Drug Use History: Marijuana - Past Family History Father Family Medical History: Thyroid Disorder Mother Family Medical History: Thyroid Disorder General Exam General appearance: alert, in no apparent distress Head exam: Present: atraumatic, normocephalic Eye exam: Present: normal appearance. Absent: scleral icterus, conjunctival injection Neck exam: Present: normal inspection Respiratory exam: Present: normal lung sounds bilaterally. Absent: respiratory distress, wheezes, rales, rhonchi, stridor Cardiovascular Exam: Present: regular rate, normal rhythm, normal heart sounds. Absent: systolic murmur, diastolic murmur, rubs, gallop GI/Abdominal exam: Present: soft. Absent: distended, tenderness, guarding, rebound, rigid, mass Extremities exam: Present: normal inspection, normal capillary refill. Absent: pedal edema, calf tenderness Back exam: Present: normal inspection. Absent: CVA tenderness (R), CVA tenderness (L) Neurological exam: Present: alert, oriented X3, CN II-XII intact. Absent: motor sensory deficit Skin exam: Present: warm, dry, intact, normal color. Absent: rash Course Vital Signs 09/27/22 09/27/22 09/27/22 15:45 17:52 19:32 Temperature 97.8 F Pulse Rate 84 96 84 Respiratory 18 18 18 Rate Blood Pressure 103/44 111/58 108/73 O2 Sat by Pulse 98 98 97 Oximetry 09/27/22 20:53 Temperature 98.6 F Pulse Rate 70 Respiratory 18 Rate Blood Pressure 110/69 O2 Sat by Pulse 97 Oximetry EKG Findings - EKG Results: EKG: interpreted by ERMD, sinus rhythm (Rate 76 bpm), normal axis, normal QRS, normal ST/T, no acute changes - HI, Pacemaker, Normal: Normal tracing: normal tracing Medical Decision Making - Medical Decision Making The patient had chest x-ray which I interpreted as being negative for acute infiltrate, pneumothorax, congestive heart failure Was pt. sent in by a medical professional or institution (, PA, MACHINE BOOKKEEPER, urgent care, hospital, or intermediate...) When possible be specific @ -[No] Did you speak to anyone other than the patient for history (EMS, parent, family, police, friend...)? What history was obtained from this source @ -[No] Did you review nursing and triage notes (agree or disagree)? Why? @ -[I reviewed and agree with nursing and triage notes] Were old charts reviewed (outside hosp., previous admission, EMS record, old EKG, old radiological studies, urgent care reports/EKG's, intermediate records)? Report findings @ -[No old charts were reviewed] Differential Diagnosis (chest pain, altered mental status, abdominal pain women, abdominal pain men, vaginal bleeding, weakness, fever, dyspnea, syncope, headache, dizziness, GI bleed, back pain, seizure, CVA, palpatations, mental health, musculoskeletal)? @ -[Differential Syncope: Valvular disease, hypertrophic cardiomyopathy, pulmonary embolism, tamponade, tachycardia, bradycardia, HI, hypovolemia, hemorrhage, dissection, anemia, intracranial hemorrhage, seizure, hypoglycemia, carbon monoxide poisoning, this is not meant to be an all-inclusive list. EKG interpreted by me (3pts min.). @ -[As above] X-rays interpreted by me (1pt min.). @ -[As above CT interpreted by me (1pt min.). @ -[None done] U/S interpreted by me (1pt. min.). @ -[None done] What testing was considered but not performed or refused? (CT, X-rays, U/S, labs)? Why? @ -[None] What meds were considered but not given or refused? Why? @ -[None] Did you discuss the management of the patient with other professionals (professionals i.e. , PA, MACHINE BOOKKEEPER, lab, RT, psych nurse, social professionals, warehouse engineer, teacher, global chief experience officer, lining caser)? Give summary @ -[No] Was smoking cessation discussed for >3mins.? @ -[No] Was critical care preformed (if so, how long)? @ -[No] Were there social determinants of health that impacted care today? How? (Homelessness, low income, unemployed, alcoholism, drug addiction, transportation, low edu. Level, literacy, decrease access to med. care, [facility], rehab)? @ -[No] Was there de-escalation of care discussed even if they declined (Discuss DNR or withdrawal of care, Hospice)? DNR status @ -[No] What co-morbidities impacted this encounter? (DM, HTN, Smoking, COPD, CAD, Cancer, CVA, ARF, Chemo, Hep., AIDS, mental health diagnosis, sleep apnea, morbid obesity)? @ -[None] Was patient admitted / discharged? Hospital course, mention meds given and route, prescriptions, significant lab abnormalities, going to OR and other pertinent info. @ -[This patient is a 22-year-old woman here for evaluation after syncopal episode. The workup is within normal limits. We discussed appropriate further care and follow-up as well as return parameters. Undiagnosed new problem with uncertain prognosis? @ -[No] Drug Therapy requiring intensive monitoring for toxicity (Heparin, Nitro, Insulin, Cardizem)? @ -[No] Were any procedures done? @ -[No] Diagnosis/symptom? @ -[Acute syncopal episode, uncomplicated Acute, or Chronic, or Acute on Chronic? @ -[default] Uncomplicated (without systemic symptoms) or Complicated (systemic symptoms)? @ -[default] Side effects of treatment? @ -[No] Exacerbation, Progression, or Severe Exacerbation? @ -[No] Poses a threat to life or bodily function? How? (Chest pain, USA, [place], pneumonia, PE, COPD, DKA, ARF, appy, cholecystitis, CVA, Diverticulitis, Homicidal, Suicidal, threat to staff... and all critical care pts) @ -[No] - Lab Data Result diagrams: 09/27/22 16:57 09/27/22 16:57 Lab Results 09/27/22 09/27/22 09/27/22 Range/Units 16:57 16:57 16:57 WBC 10.6 (4.0-11.0) k/uL RBC 3.83 (3.80-5.40) m/uL Hgb 10.6 L (11.4-16.0) gm/dL Hct 31.4 L (34.0-46.0) % MCV 82.2 (80.0-100.0) fL MCH 27.6 (25.0-35.0) pg MCHC 33.6 (31.0-37.0) g/dL RDW 13.8 (11.5-15.5) % Plt Count 230 (150-450) k/uL MPV 8.0 Neutrophils % 77 % Lymphocytes % 14 % Monocytes % 6 % Eosinophils % 2 % Basophils % 0 % Neutrophils # 8.2 H (1.3-7.7) k/uL Lymphocytes # 1.4 (1.0-4.8) k/uL Monocytes # 0.6 (0-1.0) k/uL Eosinophils # 0.2 (0-0.7) k/uL Basophils # 0.0 (0-0.2) k/uL Sodium 132 L (137-145) mmol/L Potassium 3.6 (3.5-5.1) mmol/L Chloride 106 (98-107) mmol/L Carbon Dioxide 20 L (22-30) mmol/L Anion Gap 6 mmol/L BUN 8 (7-17) mg/dL Creatinine 0.56 (0.52-1.04) mg/dL Est GFR (CKD-EPI)AfAm >90 (>60 ml/min/1.73 sqM) Est GFR (CKD-EPI)NonAf >90 (>60 ml/min/1.73 sqM) Glucose 96 (74-99) mg/dL Calcium 8.5 (8.4-10.2) mg/dL Total Bilirubin 0.7 (0.2-1.3) mg/dL AST 18 (14-36) U/L ALT 15 (4-34) U/L Alkaline Phosphatase 66 (38-126) U/L Troponin I <0.012 (0.000-0.034) ng/mL Total Protein 5.9 L (6.3-8.2) g/dL Albumin 2.9 L (3.5-5.0) g/dL Disposition Clinical Impression: Syncope Disposition: HOME SELF-CARE Condition: Good Instructions (If sedation given, give patient instructions): Syncope (DC) Is patient prescribed a controlled substance at d/c from ED?: No Referrals: None,Stated [Primary Care Provider] - 1-2 days
--- NOTE | 2022-09-27 17:09 | XR ---
EXAMINATION TYPE: XR chest 1V portable DATE OF EXAM: 09/27/2022 Comparison: None Clinical History: 22-year-old female syncope Findings: Heart upper limits of normal in size. Aorta and pulmonary vasculature within normal limits. Hazy dens ities relating to overlying soft tissue and portable technique. No consolidation or pleural effusion. Impression: No acute cardiopulmonary process.
[2022-09-27 17:24] LABS: Basophils % (A) 0 %; Eosinophils # (A) 0.2 k/uL (0-0.7); Eosinophils % (A) 2 %; HCT 31.4 % (34.0-46.0); HGB 10.6 gm/dL (11.4-16.0); Lymphocytes # (A) 1.4 k/uL (1.0-4.8); Lymphocytes % (A) 14 %; MCH 27.6 pg (25.0-35.0); MCHC 33.6 g/dL (31.0-37.0); MCV 82.2 fL (80.0-100.0); Monocytes # (A) 0.6 k/uL (0-1.0); Monocytes % (A) 6 %; Neutrophils # (A) 8.2 k/uL (1.3-7.7); Neutrophils % (A) 77 %; Platelet Count 230 k/uL (150-450); RBC 3.83 m/uL (3.80-5.40); RDW 13.8 % (11.5-15.5); WBC 10.6 k/uL (4.0-11.0)
[2022-09-27 17:33] LABS: ALT 15 U/L (4-34); AST 18 U/L (14-36); African American GFR (CKD) >90 (>60 ml/min/1.73 sqM); Albumin 2.9 g/dL (3.5-5.0); Alkaline Phosphatase 66 U/L (38-126); Anion Gap 6 mmol/L; Blood Urea Nitrogen 8 mg/dL (7-17); Calcium 8.5 mg/dL (8.4-10.2); Carbon Dioxide 20 mmol/L (22-30); Chloride 106 mmol/L (98-107); Glucose 96 mg/dL (74-99); Non-African American GFR(CKD) >90 (>60 ml/min/1.73 sqM); Potassium 3.6 mmol/L (3.5-5.1); Sodium 132 mmol/L (137-145); Total Bilirubin 0.7 mg/dL (0.2-1.3); Total Protein 5.9 g/dL (6.3-8.2)
[2022-09-27 20:56] VITALS: BP 110/69; PULSE 70; TEMP 98.6
== END 2022-09-27 20:51 | disposition home or self-care (01) ==
LOC: EC 15:42
DX: R55 Syncope and collapse (principal); J45.909 Unspecified asthma, uncomplicated; Z86.59 Personal history of other mental and behavioral disorders; F17.290 Nicotine dependence, other tobacco product, uncomplicated; F12.90 Cannabis use, unspecified, uncomplicated; Z79.899 Other long term (current) drug therapy
CPT/HCPCS: 36415; 71045; 80053; 84484; 85025; 93005; 99285

== ENCOUNTER 2022-12-06 03:02 | Inpatient (IN) | payer OTHER ==
[2022-12-06] MEDS ORDERED: CARBOPROST TROMETHAMINE 250 MCG/ML 1 ML AMP IM PRN (03:22)
[2022-12-06] MEDS ORDERED: METHYLERGONOVINE 0.2 MG/ML 1 ML AMP IM PRN (03:22)
[2022-12-06] MEDS ORDERED: TERBUTALINE 1 MG/ML VIAL SQ PRN (03:22)
[2022-12-06] MEDS ORDERED: miSOPROStoL 200 MCG TAB PO PRN (03:22)
[2022-12-06] MEDS ORDERED: LIDOCAINE 0.5% (PF) 5 MG/ML (50 ML SDV) SQ PRN (03:22)
[2022-12-06] MEDS ORDERED: TRANEXAMIC 1,000 MG/100ML-NACL 1,000 MG in EMPTY BAG 1 BAG IV PRN (03:22)
[2022-12-06] MEDS ORDERED: OXYTOCIN 10 UNIT/ML 1 ML VIAL IM PRN (03:22)
[2022-12-06] MEDS ORDERED: OXYTOCIN 30 UNITS/500 ML NS 30 UNIT in SALINE 1 500ML.BAG IV SCH ×2 (03:30→04:00)
[2022-12-06] MEDS: LACTATED RINGERS 1,000 ML IV SCH ×3 (03:55→08:22)
[2022-12-06 04:08] LABS: Basophils % (A) 0 %; Eosinophils # (A) 0.2 k/uL (0-0.7); Eosinophils % (A) 2 %; HCT 33.7 % (34.0-46.0); HGB 11.3 gm/dL (11.4-16.0); Lymphocytes # (A) 2.4 k/uL (1.0-4.8); Lymphocytes % (A) 22 %; MCH 26.2 pg (25.0-35.0); MCHC 33.4 g/dL (31.0-37.0); MCV 78.5 fL (80.0-100.0); Mean Platelet Volume 8.8; Monocytes # (A) 0.5 k/uL (0-1.0); Monocytes % (A) 4 %; Neutrophils # (A) 7.6 k/uL (1.3-7.7); Neutrophils % (A) 69 %; Platelet Count 228 k/uL (150-450); RDW 13.8 % (11.5-15.5)
[2022-12-06] MEDS ORDERED: fentaNYL (PF) 50 MCG/ML 5 ML AMP ONE (07:35)
[2022-12-06] MEDS ORDERED: SODIUM CHLORIDE 0.9% 250 ML BAG ONE (07:35)
[2022-12-06] MEDS ORDERED: ROPIVACAINE 5 MG/ML 30 ML VIAL ONE (07:35)
--- NOTE | 2022-12-06 08:27 | P.HPOB ---
History of Present Illness H&P Date: 12/06/22 Chief Complaint: SROM 22-year-old presents at 39 weeks and 4 days with spontaneous rupture of membranes at 2:30 AM. Her cervix is dilated 2-3 cm, 70% effaced, -2 station. Francois irregularly. heart tones 135 with moderate variability and reactive. Review of Systems All systems: negative Constitutional: Denies chills, Denies fever Eyes: denies blurred vision, denies pain Ears, nose, mouth and throat: Denies headache, Denies sore throat Cardiovascular: Denies chest pain, Denies shortness of breath Respiratory: Denies cough Gastrointestinal: Denies abdominal pain, Denies diarrhea, Denies nausea, Denies vomiting Genitourinary: Denies dysuria, Denies hematuria Musculoskeletal: Denies myalgias Integumentary: Denies pruritus, Denies rash Neurological: Denies numbness, Denies weakness Psychiatric: Denies anxiety, Denies depression Endocrine: Denies fatigue, Denies weight change Past Medical History Past Medical History: Asthma Additional Past Medical History / Comment(s): vaginal delivery 12/2021 History of Any Multi-Drug Resistant Organisms: None Reported Past Surgical History: No Surgical Hx Reported Additional Past Surgical History / Comment(s): [place] teeth, D&C 2020 Past Anesthesia/Blood Transfusion Reactions: No Reported Reaction Past Psychological History: Anxiety, Bipolar, Depression Smoking Status: Vaper Past Alcohol Use History: None Reported Past Drug Use History: Marijuana - Past Family History Father Family Medical History: Thyroid Disorder Mother Family Medical History: Thyroid Disorder Medications and Allergies Home Medications Medication Instructions Recorded Confirmed Type Albuterol Inhaler [Ventolin Hfa 2 puff INHALATION RT-QID PRN 09/27/22 12/06/22 History Inhaler] Vit No.180/Iron/Folic 1 tab PO DAILY 09/27/22 12/06/22 History [ Plus Tablet] Allergies Allergy/AdvReac Type Severity Reaction Status Date / Time No Known Allergies Allergy Verified 09/27/22 16:52 Exam Osteopathic Statement: *. No significant issues noted on an osteopathic structural exam other than those noted in the History and Physical/Consult. Vital Signs Temp Pulse Resp BP Pulse Ox 12/06/22 03:43 97.1 F L 90 16 127/61 100 12/06/22 03:08 97.1 F L 90 16 127/61 100 Intake and Output 12/05/22 12/06/22 12/06/22 22:59 06:59 14:59 Other: # Voids 2 Weight 128.82 kg Heart: Regular rate and rhythm Lungs: Clear to auscultation bilaterally Abdomen: Soft, nontender Extremities: Negative Homans sign Results Result Diagrams: 12/06/22 03:50 Abnormal Lab Results - Last 24 Hours (Table) 12/06/22 Range/Units 03:50 Hgb 11.3 L (11.4-16.0) gm/dL Hct 33.7 L (34.0-46.0) % MCV 78.5 L (80.0-100.0) fL Assessment and Plan (1) Spontaneous rupture of membranes Current Visit: Yes Status: Acute Code(s): JCP0444 - SNOMED Code(s): 764154540 (2) 39 weeks gestation of Current Visit: Yes Status: Acute Code(s): Z3A.39 - 39 WEEKS GESTATION OF SNOMED Code(s): 40528485 Plan: 1. Admit to family place 2. Pitocin augmentation if necessary 3. Anticipate normal vaginal delivery
[2022-12-06] MEDS ORDERED: ZOLPIDEM 5 MG TAB PO PRN (10:16)
[2022-12-06] MEDS ORDERED: diphenhydrAMINE 50 MG CAP PO PRN (10:16)
[2022-12-06] MEDS ORDERED: SIMETHICONE 80 MG CHEWABLE PO PRN (10:16)
[2022-12-06] MEDS ORDERED: LANOLIN CREAM 5 GM TUBE TOPICAL PRN (10:16)
[2022-12-06] MEDS ORDERED: diphenhydrAMINE 50 MG/ML 1 ML VIAL IVP PRN ×2 (10:16)
[2022-12-06] MEDS ORDERED: BENZOCAINE/MENTHOL SPRAY 1 GM/SPRAY AEROSOL TOPICAL PRN (10:16)
[2022-12-06] MEDS ORDERED: diphenhydrAMINE 25 MG CAP PO PRN (10:16)
[2022-12-06] MEDS ORDERED: HYDROCORTISONE 2.5% RECTAL CREAM 30 GM TUBE RECTAL PRN (10:16)
[2022-12-06] MEDS: IBUPROFEN 600 MG TAB PO PRN ×3 (10:26→22:37)
[2022-12-06] MEDS: ACETAMINOPHEN TAB 325 MG TAB PO PRN ×2 (13:19→19:45)
[2022-12-06] MEDS: SENNOSIDES-DOCUSATE SODIUM 1 EACH TAB PO SCH (19:45)
[2022-12-07] MEDS: ACETAMINOPHEN TAB 325 MG TAB PO PRN (02:23)
[2022-12-07] MEDS: IBUPROFEN 600 MG TAB PO PRN (06:29)
--- NOTE | 2022-12-07 07:54 | P.PROBDLV ---
Vaginal Delivery Note - . Vaginal Delivery Note: 22-year-old presents at 39 weeks and 4 days with spontaneous rupture of membranes at 2:30 AM. Her cervix is dilated 2-3 cm, 70% effaced, -2 station. Francois irregularly. heart tones 135 with moderate variability and reactive. Pitocin augmentation was started. When she was uncomfortable she did get an epidural but the epidural did not work. Her cervix was completely dilated at 9:16 AM. She pushed once, and delivered a viable male infant at 9:17 AM. Apgars 9, 9, weight 7 lbs. 5 oz. I presented to the room soon thereafter deliver the placenta at 9:23 AM spontaneously. Vagina, cervix, perineum inspected. No lacerations noted. Estimated blood loss 250 mL mother and baby in stable condition.
--- NOTE | 2022-12-07 07:55 | P.DS ---
Providers Date of admission: 12/06/22 03:22 Expected date of discharge: 12/07/22 Attending physician: Christina Holloway Primary care physician: Stated None - Discharge Diagnosis(es) (1) Spontaneous rupture of membranes Current Visit: Yes Status: Resolved (2) 39 weeks gestation of Current Visit: Yes Status: Resolved (3) Normal vaginal delivery Current Visit: Yes Status: Acute Hospital Course: Patient presented with spontaneous rupture membranes. She underwent a normal vaginal delivery with Pitocin augmentation. course is uneventful. She denies nausea, vomiting, chest pain, shortness of breath or calf pain. Patient will be discharged home day #1 in stable condition to follow- up with me in 6 weeks. Plan - Discharge Summary New Discharge Prescriptions: New Ibuprofen [Motrin] 600 mg PO Q6HR PRN #30 tab PRN Reason: Mild Pain Or Fever >= 100.5 No Action Albuterol Inhaler [Ventolin Hfa Inhaler] 2 puff INHALATION RT-QID PRN PRN Reason: Shortness Of Breath Vit No.180/Iron/Folic [ Plus Tablet] 1 tab PO DAILY Discharge Medication List Albuterol Inhaler [Ventolin Hfa Inhaler] 2 puff INHALATION RT-QID PRN 09/27/22 [History] Vit No.180/Iron/Folic [ Plus Tablet] 1 tab PO DAILY 09/27/22 [History] Ibuprofen [Motrin] 600 mg PO Q6HR PRN #30 tab 12/07/22 [Rx] Follow up Appointment(s)/Referral(s): Christina Holloway DO [Doctor of Osteopathic Medicine] - 01/17/23 10:45 am Discharge Disposition: HOME SELF-CARE
[2022-12-07 09:23] VITALS: BP 121/66; PULSE 82; RESP 18; TEMP 98.7
[2022-12-07] MEDS: SENNOSIDES-DOCUSATE SODIUM 1 EACH TAB PO SCH (13:42)
== END 2022-12-07 10:39 | disposition home or self-care (01) | DRG 560 ==
LOC: FBPOP 03:02 → 4FBP 03:22
PROVIDERS: ADMIT Obstetrics & Gynecology; ATTEND Obstetrics & Gynecology
PROC: 10E0XZZ Delivery of Products of Conception, External Approach (ICD-10-PCS; principal; 2022-12-06)
PROC: 3E033VJ Introduction of Other Hormone into Peripheral Vein, Percutaneous Approach (ICD-10-PCS; 2022-12-06)
DX: O42.92 Full-term premature rupture of membranes, unspecified as to length of time between rupture and onset of labor (principal); F31.9 Bipolar disorder, unspecified; F41.9 Anxiety disorder, unspecified; O99.52 Diseases of the respiratory system complicating childbirth; J45.909 Unspecified asthma, uncomplicated; O99.344 Other mental disorders complicating childbirth; F17.290 Nicotine dependence, other tobacco product, uncomplicated; Z37.0 Single live birth; Z3A.39 39 weeks gestation of pregnancy; O99.334 Smoking (tobacco) complicating childbirth
CPT/HCPCS: 59025; 84112; 85025; 86850; 86900; 86901; 99213

== ENCOUNTER 2023-03-27 06:24 | Day surgery (SDC) | payer OTHER ==
--- NOTE | 2023-03-26 20:30 | P.HPOB ---
History of Present Illness H&P Date: 03/26/23 Chief Complaint: family planning 23 year old presents for laparoscopic tubal ligation. Review of Systems All systems: negative Constitutional: Denies chills, Denies fever Eyes: denies blurred vision, denies pain Ears, nose, mouth and throat: Denies headache, Denies sore throat Cardiovascular: Denies chest pain, Denies shortness of breath Respiratory: Denies cough Gastrointestinal: Denies abdominal pain, Denies diarrhea, Denies nausea, Denies vomiting Genitourinary: Denies dysuria, Denies hematuria Musculoskeletal: Denies myalgias Integumentary: Denies pruritus, Denies rash Neurological: Denies numbness, Denies weakness Psychiatric: Denies anxiety, Denies depression Endocrine: Denies fatigue, Denies weight change Past Medical History Past Medical History: Asthma, Skin Disorder Additional Past Medical History / Comment(s): vaginal delivery 12/2021, borderline anemic. takes iron QOD. pain and stiffness in hands. gets boils/pimples in between thighs, under breast and axilla. (? Hidradenitis suppurativa ) History of Any Multi-Drug Resistant Organisms: None Reported Past Surgical History: No Surgical Hx Reported Additional Past Surgical History / Comment(s): [place] teeth, D&C 2020 Past Anesthesia/Blood Transfusion Reactions: No Reported Reaction Smoking Status: Vaper - Past Family History Father Family Medical History: Thyroid Disorder Mother Family Medical History: Thyroid Disorder Medications and Allergies Home Medications Medication Instructions Recorded Confirmed Type Albuterol Inhaler [Ventolin Hfa 2 puff INHALATION RT-QID PRN 09/27/22 03/22/23 History Inhaler] Ferrous Sulfate [Iron] 325 mg PO Q48H 03/22/23 03/22/23 History Ibuprofen [Motrin Ib] 400 mg PO DIRECTED 03/22/23 03/22/23 History Allergies Allergy/AdvReac Type Severity Reaction Status Date / Time No Known Allergies Allergy Verified 03/22/23 10:17 Exam Osteopathic Statement: *. No significant issues noted on an osteopathic st ructural exam other than those noted in the History and Physical/Consult. HEart: RRR Lungs: CTAB Abdomen: soft, nontender Extremeties: neg jace's Assessment and Plan (1) Family planning Status: Acute Code(s): Z30.09 - ENCOUNTER FOR OTH GENERAL CNSL AND ADVICE ON CONTRACEPTION SNOMED Code(s): 392803473 Plan: 1.laparoscopic tubal ligation
[~2023-03-27 06:24] MED LIST: Pre Op ABX Message 1 EACH MISC MISCELLANE ONE
[2023-03-27] MEDS ORDERED: ONDANSETRON 4 MG/2 ML VIAL IVP ONE (07:00)
[2023-03-27] MEDS ORDERED: fentaNYL (PF) 50 MCG/ML 2 ML AMP IV PRN (07:00)
[2023-03-27] MEDS ORDERED: LACTATED RINGERS 1,000 ML IV SCH (07:00)
[2023-03-27] MEDS ORDERED: DEXAMETHASONE SOD PHOSPHATE 4 MG/ML 1 ML VIAL IV ONE (07:00)
[2023-03-27] MEDS ORDERED: HYDROmorphone 0.5 MG/0.5 ML SYRINGE IVP PRN (07:00)
[2023-03-27] MEDS ORDERED: MIDAZOLAM 2 MG/2 ML VIAL IV PRN (07:00)
[2023-03-27] MEDS ORDERED: LIDOCAINE 1% (10MG/ML) FOR IV START INTRADERMA PRN (07:00)
[2023-03-27 07:14] LABS: Glucose,Whole Blood 91 mg/dL (70-110)
[2023-03-27] MEDS ORDERED: BUPIVACAINE (PF) 0.25% 30 ML VIAL SQ ONE ×2 (07:23→07:48)
[2023-03-27] MEDS ORDERED: KETOROLAC 15 MG/ML 1 ML VIAL ONE (07:24)
[2023-03-27] MEDS ORDERED: PROPOFOL 10 MG/ML 20 ML VIAL IV ONE (07:24)
[2023-03-27] MEDS ORDERED: fentaNYL (PF) 50 MCG/ML 2 ML AMP ONE (07:24)
[2023-03-27] MEDS ORDERED: MIDAZOLAM 2 MG/2 ML VIAL ONE (07:24)
[2023-03-27] MEDS ORDERED: SUCCINYLCHOLINE CHLORIDE 200 MG/10 ML VIAL IV ONE (07:24)
--- NOTE | 2023-03-27 08:17 | P.OP ---
Date of Procedure: 03/27/23 Preoperative Diagnosis: 1. family planning Postoperative Diagnosis: 1. family planning Procedure(s) Performed: laparoscopic tubal ligation Anesthesia: TODD Surgeon: Christina Holloway Estimated Blood Loss (ml): 2 IV fluids (ml): 200 Urine output (ml): 30 Pathology: none sent Condition: stable Disposition: floor Description of Procedure: Patient was taken to the operating room where general anesthesia was obtained without difficulty. She was prepped and draped in normal sterile fashion in the dorsal lithotomy position, legs placed in the Dandre stirrups. Bladder drained of all urine. [place] speculum placed in the vagina and the anterior lip the cervix was grasped with single-tooth tenaculum. The uterus is sounded to 10 cm and the kroner manipulator was placed. Attention was then turned to the abdomen and gloves were changed. A 10 mm infraumbilical incision was made the scalpel and 10 mm optical trocar was placed under direct visualization. A 5 mm suprapubic Incision was made and a 5 mm optical trocar was placed under direct visualization. Survey of the pelvis revealed normal uterus tubes and ovaries. The left fallopian tube was grasped with a Kleppinger and fulgurated 2-3 cm on this side in the ampullar portion. The right fallopian tube was grasped with a Kleppinger and fulgurated 2-3 cm in the ampullar portion. All instruments were then removed from the abdomen and vagina. The 10 mm infraumbilical incision was closed with 0 Vicryl and the fascial layer and then 4-0 Vicryl in a subcuticular fashion. The 5 mm incision was closed with 4-0 Vicryl in a subcuticular fashion. Patient tolerated procedure well, sponge and instrument counts correct 2 and she was taken to recovery room in stable condition.
[2023-03-27 08:28] VITALS: TEMP 97.2
[2023-03-27 08:54] VITALS: RESP 18
[2023-03-27 09:45] VITALS: BP 103/66; PULSE 60
== END 2023-03-27 09:52 | disposition home or self-care (01) ==
LOC: OR 06:24
PROVIDERS: ATTEND Obstetrics & Gynecology
DX: Z30.2 Encounter for sterilization (principal); J45.909 Unspecified asthma, uncomplicated; F17.290 Nicotine dependence, other tobacco product, uncomplicated; Z79.899 Other long term (current) drug therapy
CPT/HCPCS: 81025; 58670; J2250; J0330; J1100; J2405; J3010; J1885; J2704; J0665